=== PATIENT | male | born 1945 | race Hispanic/Latino ===

== ENCOUNTER 2018-04-10 16:39 | Inpatient (IN) | payer MEDICARE, OTHER ==
[~2018-04-10] VITALS: Ht 180.3 cm; Wt 87.5 kg
[~2018-04-10 16:39] MED LIST: DARI7.5T PO; GLUC-145 PO; LISI10TA7 PO; MULT-1205 PO; TAMS0.4C32 PO
[2018-04-10 17:18] LABS: BASOPHILS % (AUTO) 0.9 % (0.0-5.0); EOSINOPHILS % (AUTO) 3.6 % (0.0-8.0); HEMATOCRIT 39.5 % (42-54); LYMPHOCYTES % (AUTO) 32.1 % (21.0-51.0); MEAN CORPUSCULAR HEMOGLOBIN 31.5 pg (27.0-33.0); MEAN CORPUSCULAR HGB CONC 34.8 g/dL (32.0-36.0); MEAN CORPUSCULAR VOLUME 90.4 fL (79-99); MONOCYTES % (AUTO) 7.9 % (3.0-13.0); NEUTROPHILS % (AUTO) 55.5 % (40.0-77.0); NUCLEATED RED BLOOD CELLS 0.1 % (0.0-0.19); PLATELET COUNT (AUTO) 221 K/uL (130-400); RED BLOOD CELL COUNT(AUTO) 4.36 MIL/uL (4.50-6.20); RED CELL DISTRIBUTION WIDTH 12.1 % (11.0-15.5); WHITE BLOOD COUNT (AUTO) 8.2 K/uL (4.8-10.8)
[2018-04-10 17:31] LABS: CREATININE 1.2 mg/dL (0.5-1.5); POTASSIUM 3.6 mmol/L (3.5-5.1)
[2018-04-10 17:33] LABS: INR 1.01 (0.85-1.15); PARTIAL THROMBOPLASTIN TIME 30.2 SEC (26.3-35.5); PROTHROMBIN TIME 10.6 SEC (9.6-11.6)
[2018-04-10 17:36] LABS: ALBUMIN 3.5 g/dL (3.5-5.0); BILIRUBIN,TOTAL 0.6 mg/dL (0.2-1.0); TOTAL PROTEIN, SERUM 7.1 g/dL (6.0-8.3)
[2018-04-10 18:10] VITALS: BP 167/73
[2018-04-10] MEDS ORDERED: SODIUM CHLORIDE 0.9% 10 ML VIAL IVP SCH (18:15)
[2018-04-10 19:40] VITALS: BP 175/74
[2018-04-10 23:54] VITALS: BP 187/78
[2018-04-11] VITALS (14 sets, daily range): BP systolic 139–194; BP diastolic 64–105
[2018-04-11] MEDS ORDERED: HYDRALAZINE HCL 20 MG/ML VIAL ONE (01:53)
[2018-04-11] MEDS: HYDRALAZINE HCL 20 MG/ML VIAL IV SCH (02:02)
[2018-04-11] MEDS: CEFAZOLIN SODIUM 1 GM VIAL IVP SCH (05:30)
[2018-04-11] MEDS ORDERED: LOPE2TAB26 PO (06:22)
[2018-04-11] MEDS ORDERED: METF500T6 PO (06:22)
[2018-04-11] MEDS ORDERED: GABA-531 PO (06:22)
[2018-04-11] MEDS ORDERED: BENA20TA10 PO (06:22)
[2018-04-11] MEDS ORDERED: ATOR10TA69 PO (06:22)
[2018-04-11] MEDS ORDERED: FINA5TAB41 PO (06:22)
[2018-04-11] MEDS ORDERED: CLOP75TA32 PO (06:22)
[2018-04-11] MEDS ORDERED: LOPERAMIDE HCL 2 MG CAP PO PRN (08:45)
[2018-04-11] MEDS: ATORVASTATIN CALCIUM 10 MG TABLET PO SCH (09:00)
[2018-04-11] MEDS ORDERED: CEFAZOLIN SODIUM 1 GM VIAL ONE (11:00)
[2018-04-11] MEDS ORDERED: BUPIVACAINE/PF 0.25% 30ML VIAL IJ ONE (11:00)
[2018-04-11] MEDS ORDERED: LIDOCAINE HCL 1% MDV 50ML VIAL ONE (11:01)
[2018-04-11] MEDS ORDERED: MIDAZOLAM HCL 1 MG/ML 2ML VIAL ONE ×2 (11:22→13:50)
[2018-04-11] MEDS ORDERED: MEPERIDINE-PF 50 MG/ML SYG ONE (11:22)
[2018-04-11] MEDS ORDERED: ISOVUE-300 100 ML VIAL IV ONE (12:08)
[2018-04-11] MEDS ORDERED: ACETAMINOPHEN 325 MG TAB PO PRN (12:45)
[2018-04-11] MEDS ORDERED: ACETAMINOPHEN-CODEINE 300/30MG TAB PO PRN ×2 (12:45)
[2018-04-11] MEDS: FINASTERIDE 5 MG TABLET PO SCH (14:38)
[2018-04-11] MEDS: BENAZEPRIL HCL 10 MG TABLET PO SCH (14:38)
[2018-04-11] MEDS ORDERED: GABAPENTIN 300 MG CAPSULE PO SCH (21:00)
[2018-04-12 00:26] VITALS: BP 131/77
[2018-04-12] MEDS: HYDRALAZINE HCL 20 MG/ML VIAL IV SCH (02:00)
[2018-04-12 03:47] VITALS: BP 146/76
[2018-04-12] MEDS: CEFAZOLIN SODIUM 1 GM VIAL IVP SCH (05:30)
[2018-04-12 07:39] VITALS: BP 158/89
[2018-04-12] MEDS: FINASTERIDE 5 MG TABLET PO SCH (09:38)
[2018-04-12] MEDS: BENAZEPRIL HCL 10 MG TABLET PO SCH (09:38)
[2018-04-12] MEDS: ATORVASTATIN CALCIUM 10 MG TABLET PO SCH (09:38)
[2018-04-12 11:36] VITALS: BP 146/84
== END 2018-04-12 15:15 | disposition home or self-care (01) | DRG 244 ==
LOC: EDH 16:39 → OBSVTOIN 16:40 → INTOOBSV 16:40 → EDHIP 16:40 → 2DH 17:46
PROVIDERS: ADMIT Internal Medicine; ATTEND Internal Medicine
PROC: 0JH606Z Insertion of Pacemaker, Dual Chamber into Chest Subcutaneous Tissue and Fascia, Open Approach (ICD-10-PCS; principal; 2018-04-11)
PROC: 02H63JZ Insertion of Pacemaker Lead into Right Atrium, Percutaneous Approach (ICD-10-PCS; 2018-04-11)
PROC: 02HK3JZ Insertion of Pacemaker Lead into Right Ventricle, Percutaneous Approach (ICD-10-PCS; 2018-04-11)
DX: I44.2 Atrioventricular block, complete (principal); E11.40 Type 2 diabetes mellitus with diabetic neuropathy, unspecified; E78.5 Hyperlipidemia, unspecified; I10 Essential (primary) hypertension; N40.0 Benign prostatic hyperplasia without lower urinary tract symptoms; Z86.73 Personal history of transient ischemic attack (TIA), and cerebral infarction without residual deficits; Z90.79 Acquired absence of other genital organ(s)
CPT/HCPCS: 33208; 36415; 71045; 80053; 84443; 85025; 85610; 85730; 99156; 99157; C1785; J0360; J0690; J2175; J2250; J3490; Q9967